=== PATIENT | female | born 1975 ===

== ENCOUNTER 2023-12-18 19:42 | Emergency (ER) | payer OTHER, SELFPAY ==
--- NOTE | ~2023-12-18 | US_ITS ---
EXAMINATION: US PELVIS CLINICAL INFORMATION: Excessive bleeding. COMPARISON: None available. TECHNIQUE: Ultrasound of the pelvis is performed using both transabdominal and transvaginal transducers along with Doppler. Transvaginal imaging is performed due to inadequate visualization transabdominally. FINDINGS: Uterus: The uterus is anteverted, anteflexed and measures 9.5 x 6.0 x 7.5 cm. The double wall endometrial thickness is 2.2 cm.. The uterus is enlarged, bulky with a heterogeneous anterior fundus question adenomyosis. There is a loculated-appearing uterus. There is a echogenic area within the fundal endometrium suspicious for a polyp measuring 2.5 x 1.1 x 1.2 cm. Adnexa: Both ovaries are visualized. There is normal color flow to the adnexa. There is no ovarian torsion. There is no pelvic ascites or fluid collection. Right ovary is not visualized. Left ovary measures 2.8 x 2.1 x 1.6 CM and volume 4.6 mL. It appears unremarkable. There is no free fluid. US/US pelvic and transvaginal IMPRESSION: Bulky enlarged uterus with heterogenous anterior fundus question adenomyomatosis. Suspect fundal endometrial polyp. Left ovary is unremarkable. Right ovary is not visualized. No free fluid in cul-de-sac.
[2023-12-18 19:58] VITALS: BP 150/56; PULSE 89; RESP 20; TEMP 36.4; O2SAT 97; BMI 32.3
[2023-12-18 20:32] LABS: MANUAL DIFF FLAG NO
[2023-12-18 20:33] LABS: Basophils Absolute Auto 0.1 X10*3/uL (0.0-0.2); Basophils Percent Auto 0.6 % (0-2); Eosinophils Absolute Auto 0.3 X10*3/uL (0.0-0.4); Eosinophils Percent Auto 2.5 % (0-4); Hematocrit 28.5 % (37.0-47.0); Hemoglobin 9.3 g/dl (12.0-16.0); Imm Gran Abs Auto 0.07 X10*3/uL (0.00-0.03); Imm Gran Pct Auto 0.6 % (0.0-0.4); Lymphocytes Absolute Auto 3.1 X10*3/uL (1.2-4.9); Lymphocytes Percent Auto 27.6 % (20-40); Mean Corpuscular HGB Conc 32.6 g/dl (31.0-35.0); Mean Corpuscular Hemoglobin 29.7 pg (27.0-33.0); Mean Corpuscular Volume 91.1 fL (80.0-98.0); Mean Platelet Volume 9.7 fL (9.4-12.3); Monocytes Absolute Auto 0.7 X10*3/uL (0.1-1.2); Monocytes Percent Auto 6.7 % (2-11); Neutrophils Absolute Auto 6.8 x10*3/uL (2.0-8.3); Platelet Count 360 X10*3/uL (160-400); Red Blood Count 3.13 X10*6/uL (4.20-5.50); Red Cell Distribution Width 14.6 % (11.0-16.0); White Blood Count 11.1 X10*3/uL (4.8-10.8)
[2023-12-18 20:45] LABS: Anion Gap 12 (12-20); Blood Urea Nitrogen 14 mg/dL (9-16); Calcium 8.9 mg/dL (8.4-10.2); Carbon Dioxide 25 mmol/L (22-29); Chloride 107 mmol/L (96-108); Creatinine Clr Calc Pharmacy 89.6; Estimated Glomerular Filt Rate > 60; Glucose Fasting 105 mg/dL (60-99); Sodium 140 mmol/L (135-145)
--- NOTE | 2023-12-18 22:52 | ED_ITS ---
HPI - Female Genitourinary General Chief complaint: Vaginal Bleeding Stated complaint: bleeding since 11/26, getting worse Time Seen by Provider: 12/18/23 22:14 Source: patient Mode of arrival: ambulatory History of Present Illness HPI Narrative: 48-year-old female presents with menstrual bleeding since November 26 that she says has worsened with passing several clots to include the use of 4 tampons an hour. Patient states that she has had this kind of bleeding previously but it was proximally 20 years ago. Patient denies any dizziness or heart palpitations but states that she does feel somewhat weakened. Patient has recently moved here from [place]. Related Data Previous Rx's Medication Instructions Recorded medroxyprogesterone 10 mg tablet 10 mg PO DAILY #30 tabs 12/19/23 (Provera) Allergies Allergy/AdvReac Type Severity Reaction Status Date / Time ibuprofen Allergy Facial Verified 12/18/23 20:02 Swelling Review of Systems 2 Review of Systems: Pertinent positives and negatives as stated in HPI [facility] Past Medical History Source: nursing notes reviewed Social History Social History Advance Directives: No Advance Directives Information Provided: Yes Physical Exam 2 Vital Signs: Vital Signs: Last Vital Signs Temp 97.8 F 12/19/23 00:12 Pulse 82 12/19/23 00:12 Resp 17 12/19/23 00:12 BP 113/63 12/19/23 00:12 Pulse Ox 97 12/19/23 00:12 O2 Del Method Room Air 12/19/23 00:12 BMI result Body Mass Index 32.3 VITAL SIGNS: Reviewed. GENERAL: Well developed, well nourished, in no acute distress. HEAD: Normocephalic/atraumatic EYES: PERRLA, EOMI EARS: Ext canals without abnormality NOSE: Nares patent bilateral OROPHARYNX: no oral lesions noted, posterior pharynx clear NECK: Supple, no adenopathy LUNGS: Normal breath sounds. No adventitious sounds or accessory muscle use. SpO2<97> CARDIOVASCULAR: Regular rate and rhythm without noted murmurs ABDOMEN: Soft, non-tender, non-distended with bowel sounds. MUSCULOSKELETAL: No tenderness, deformities, or effusions noted on gross inspection. EXTREMITIES: No cyanosis, clubbing or edema. SKIN: Inspection of the skin reveals no rashes NEUROLOGIC: Alert and oriented x 4. Strength and sensation to light touch were grossly intact x 4. Medical Decision Making Medical Decision Making [facility] Narrative: 48-year-old female with history and clinical presentation, DDX: Dysfunctional uterine bleeding, possible uterine fibroids, lower clinical suspicion for miscarriage. I reviewed all investigations and hematologic indices demonstrate a normocytic anemia with stress leukocyte elevation and no thrombocytopenia. Chemistry indices do not demonstrated ALEXANDRA and there are no electrolyte abnormalities. Beta hCG is undetectable. Ultrasound demonstrates evidence to suggest adenomyomatosis, I discussed case with our free lance model who at this time recommends Provera 10 mg and patient will be discharged with a prescription and follow-up with gynecology for endo biopsy. I have discussed all results, findings as well as the plan with the patient at bedside. Differential Diagnosis Differential Diagnoses: The differential diagnosis associated with the presentation includes Please see the discussion above Admission/Observation Consideration of admission/observation: Escalation of care including admission/observation considered Please see the discussion above Consult Healthcare Provider Management of the patient was discussed with: Organizational Psychologist Please see the discussion above Lab Data [facility] Lab Attestation statement: I reviewed the patient's lab results. Please see the discussion above 12/18/23 20:28 12/18/23 20:28 Labs: Lab Results 12/18/23 Range/Units 20:28 WBC 11.1 H (4.8-10.8) X10*3/uL RBC 3.13 L (4.20-5.50) X10*6/uL Hgb 9.3 L (12.0-16.0) g/dl Hct 28.5 L (37.0-47.0) % MCV 91.1 (80.0-98.0) fL MCH 29.7 (27.0-33.0) pg MCHC 32.6 (31.0-35.0) g/dl RDW 14.6 (11.0-16.0) % Plt Count 360 (160-400) X10*3/uL MPV 9.7 (9.4-12.3) fL Immature Gran % (Auto) 0.6 H (0.0-0.4) % Neut % (Auto) 62.0 (45-73) % Lymph % (Auto) 27.6 (20-40) % [place] % (Auto) 6.7 (2-11) % Eos % (Auto) 2.5 (0-4) % Baso % (Auto) 0.6 (0-2) % Lymph # (Auto) 3.1 (1.2-4.9) X10*3/uL [place] # (Auto) 0.7 (0.1-1.2) X10*3/uL Eos # (Auto) 0.3 (0.0-0.4) X10*3/uL Baso # (Auto) 0.1 (0.0-0.2) X10*3/uL Abs Immat Gran (auto) 0.07 H (0.00-0.03) X10*3/uL Absolute Neuts (auto) 6.8 (2.0-8.3) x10*3/uL Absolute Nucleated RBC 0.000 (0.0-0.012) X10*3/uL Nucleated RBC % (auto) 0.0 (0.0-0.2) /100WBC Sodium 140 (135-145) mmol/L Potassium 4.0 (3.3-5.1) mmol/L Chloride 107 (96-108) mmol/L Carbon Dioxide 25 (22-29) mmol/L Anion Gap 12 (12-20) BUN 14 (9-16) mg/dL Creatinine 0.89 (0.5-1.4) mg/dL Estim Creat Clear Calc 89.6 Estimated GFR > 60 Fasting Glucose 105 H (60-99) mg/dL Calcium 8.9 (8.4-10.2) mg/dL Beta HCG, Quant < 2 mIU/mL Radiology Impression Discussion of test interpretation with radiology: I have reviewed the radiologist's reading. Radiologist Impression: Please see the discussion above Critical Care Time Critical Care Time Critical Care Time: Yes Total Critical Care Time: 45 Attestation: I personally attest to this time spent taking care of the patient. Discharge Plan Discharge Clinical Impression: Dysfunctional uterine bleeding, Adenomyosis of uterus Patient Disposition: Home, Self-Care Instructions: Dysfunctional Uterine Bleeding (ED) Additional Instructions: You need to come back to the emergency room with persistent or recurrent bleeding. Prescriptions: New medroxyprogesterone [Provera] 10 mg tablet 10 mg PO DAILY Qty: 30 0RF Referrals: Tino Elliott MD [Physician] -
[2023-12-18 22:55] LABS: HCG Quantitative < 2 mIU/mL
[2023-12-19 00:12] VITALS: BP 113/63; PULSE 82; RESP 17; TEMP 36.6; O2SAT 97
--- NOTE | 2023-12-19 00:37 | PM.GYNCN ---
MOTOR VEHICLE FIELD REPRESENTATIVE - CN: HPI Data of Consult Consult date: 12/19/23 Primary Care Provider: None Physician Consult Narrative Narrative: I was consulted on Delia Mcneil who is a 48 year old female presenting to the emergency with vaginal bleeding since November 26 that associated with passage of blood clots. The Patient denies any dizziness or heart palpitations but states that she does feel somewhat weakened. HCG is less than 2 cc:: CC: OB [facility] Social History Social History Advance Directives: No Advance Directives Information Provided: Yes Meds Allergies Allergy/AdvReac Type Severity Reaction Status Date / Time ibuprofen Allergy Facial Verified 12/18/23 20:02 Swelling MOTOR VEHICLE FIELD REPRESENTATIVE Physical Exam Vitals Vital signs: Temp Pulse Resp BP Pulse Ox O2 Del Method 97.8 F 82 17 113/63 97 Room Air 12/19/23 00:12 12/19/23 00:12 12/19/23 00:12 12/19/23 00:12 12/19/23 00:12 12/19/23 00:12 BMI result Body Mass Index 32.3 Additional Comments: Reported as the following: No evidence of active vaginal bleeding, no cervical or motion or uterine tenderness MOTOR VEHICLE FIELD REPRESENTATIVE - Results Labs 12/18/23 20:28 12/18/23 20:28 Labs: Short CBC 12/18/23 Range/Units 20:28 WBC 11.1 H (4.8-10.8) X10*3/uL Hgb 9.3 L (12.0-16.0) g/dl Hct 28.5 L (37.0-47.0) % Plt Count 360 (160-400) X10*3/uL BMP 12/18/23 20:28 Sodium 140 Potassium 4.0 Chloride 107 Carbon Dioxide 25 BUN 14 Creatinine 0.89 Calcium 8.9 Imaging US - abdomen: Radiologist's impression: ITS Impressions Pelvic/Transvag US 12/18/23 23:04 IMPRESSION: Bulky enlarged uterus with heterogenous anterior fundus question adenomyomatosis. Suspect fundal endometrial polyp. Left ovary is unremarkable. Right ovary is not visualized. No free fluid in cul-de-sac. Assessment and Plan (1) Abnormal uterine bleeding (AUB): Status: Acute Plan Recommended to Dr Espinoza the following: Provera 10 mg p.o. q.d., iron sulfate 325 mg p.o. t.i.d. till the patient is seen in an outpatient OBGYN office Close outpatient follow-up for further management, Endometrial sampling with EMB / possible hysteroscopy/D&C possible polypectomy to rule out endometrial pathology. Instructions to be given to patient to come back to the emergency room in case of persistent or recurrent vaginal bleeding. I spent a total of 20 minutes reviewing the chart, communicating to the emergency room provider and documenting in the medical record
[2023-12-19] MEDS: medroxyPROGESTERone Acetate 5 MG TABLET 10 MG PO (00:58)
== END 2023-12-19 01:01 | disposition home or self-care (01) ==
PROVIDERS: Emergency Provider Student in an Organized Health Care Education/Training Program
DX: N93.8 Other specified abnormal uterine and vaginal bleeding (principal); N80.03 Adenomyosis of the uterus; D64.9 Anemia, unspecified; R53.1 Weakness; Z79.899 Other long term (current) drug therapy
CPT/HCPCS: 36415; 76830; 76856; 80048; 84702; 85025; 99283; 99284

== ENCOUNTER 2024-01-14 15:58 | Emergency (ER) | payer OTHER, SELFPAY ==
[2024-01-14 16:03] VITALS: BP 95/66; PULSE 84; RESP 18; TEMP 36.2; O2SAT 98; BMI 32.3
--- NOTE | 2024-01-14 16:04 | ED.GENADULT ---
HPI - General Adult General Chief complaint: Vaginal Bleeding Stated complaint: excessive vaginal bleeding Time Seen by Provider: 01/14/24 16:25 Source: patient Mode of arrival: ambulatory Limitations: no limitations History of Present Illness HPI narrative: 48-year-old female with a past medical history of dysfunctional vaginal bleeding presents to the emergency department, with her daughter, for concerns of worsening bleeding. She reports she was seen here on 12/18/2023 for similar symptoms and discharged on iron supplements and Provera after grounds maintenance supervisor consult. She reports she has been taking the Provera but that she has missed a few doses. She states her vaginal bleeding has increased over the last couple of days and states that she has been bleeding through both tampons and pads. She reports that she has not started iron supplementation she is history of migraines and she feels as if the iron worsens her migraines. She states she has been making diet changes to try and increase her consumption of iron. She denies any dizziness history headedness but feels that she has had increased fatigue. She denies any vaginal trauma abdominal discomfort. Related Data Previous Rx's Medication Instructions Recorded medroxyprogesterone 10 mg tablet 10 mg PO DAILY #30 tabs 12/19/23 (Provera) [id number] 1 cap PO Q8H PRN migraine #14 caps 01/14/24 50 mg-300 mg-40 mg capsule (Fioricet) ferrous sulfate 325 mg (65 mg 325 mg PO TID 30 days #90 tabs 01/14/24 iron) tablet medroxyprogesterone 10 mg tablet 10 mg PO DAILY #90 tabs 01/14/24 (Provera) Allergies Allergy/AdvReac Type Severity Reaction Status Date / Time ibuprofen Allergy Facial Verified 12/18/23 20:02 Swelling Review of Systems Review of Systems: Yes all other systems are reviewed and are negative PMFSH Social History Social History Smoked in Last 30 Days: No Use of substances other than those prescribed or required for medical reasons: No Advance Directives: No Advance Directives Information Provided: No Patient : No Physical Exam ED Vital Signs: Vital Signs - 24 hr 01/14/24 16:03 01/14/24 16:56 Temperature 97.1 F 97.9 F Pulse Rate 84 75 Respiratory Rate 18 18 Blood Pressure 95/66 134/75 Pulse Oximetry 98 100 Oxygen Delivery Method Room Air Room Air BMI result Body Mass Index 32.3 Nursing notes and vital signs reviewed. GENERAL APPEARANCE: A&0 x 4, generally well appearing, no acute distress HENMT: Normal to inspection, atraumatic, face symmetrical. Normal external ears, nose, and oropharynx clear. EYE: PERRLA, EOM intact, structures appear normal NECK: Supple without lymphadenopathy. No stiffness or restricted ROM. CHEST: Normal to inspection HEART: Normal rate and regular rhythm, normal S1/S2, no M/R/G LUNGS: LS CTA, moving air well. Able to speak in complete sentences. No crackles, wheezes, or rhonchi auscultated ABDOMEN: Soft, nontender, nondistended. Normal bowel sounds noted : Vaginal exam showing dark blood in the vaginal canal with no evidence of clots, trauma, or lesions. Badger Distiller Operator present for exam BACK: No CVAT, no obvious deformity EXTREMITIES: Moving all extremities without difficulty. No cyanosis, clubbing, or edema. Normal capillary refill. NEUROLOGICAL: Alert and oriented, moving all 4 extremities with equal strength. CN not formally tested but appearing grossly intact. Observed to ambulate with normal gait. Cognition normal SKIN: Warm and dry without any lesions, rash, or visible sores PSYCH: Cooperative, normal affect, normal thought process Course Course Course Narrative: This is a rapid medical exam: Additional HPI, ROS, PE not included below will be deferred to primary provider. Patient is a 48-year-old female presenting to the emergency department with ongoing vaginal bleeding. Seen here for same on 12/18. States lessened somewhat, then worsened again last week. Plan: labs Medical Decision Making Medical Decision Making [facility] Narrative: Old records reviewed for previous imaging, lab studies, ECGs, and notes. Patient was assessed the emergency department with no acute distress or toxicity noted. Pelvic exam completed, with charperone present, showing no evidence of vaginal trauma or lesions, abnormal tissue in the vagina. Blood work showing stable H/H of 9.4/30.2. Dr. Elliott, grounds maintenance supervisor, consulted with recommendations for ferrous sulfate iron supplementation 3 times a day and continued Provera. MD recommends close follow-up with grounds maintenance supervisor for endometrial biopsy to assess for endometrial pathology as cause of patient's increased bleeding. Patient is safe for discharge at this time with plan for [id number] Tylenol and/or NSAID such as ibuprofen or naproxen for fever/discomfort with dosing as per packaging. HPI, PE, diagnostics, and plan discussed with patient and family with no unanswered questions at this time. Strict return precautions given to return to the emergency department with new, worsening, or concerning emergent symptoms. Recommended to follow-up with there primary care provider in 24-48 hours for further treatment and management. Differential Diagnosis Differential Diagnoses: The differential diagnosis associated with the presentation includes But not limited to vaginal trauma, abnormal intrauterine bleeding, perimenopause, endometrial malignancy, uterine fibroid, sepsis, malignancy Lab Data 01/14/24 16:28 01/14/24 16:28 Labs: Lab Results 01/14/24 01/14/24 Range/Units 16:28 17:05 WBC 11.4 H (4.8-10.8) X10*3/uL RBC 3.40 L (4.20-5.50) X10*6/uL Hgb 9.4 L (12.0-16.0) g/dl Hct 30.2 L (37.0-47.0) % MCV 88.8 (80.0-98.0) fL MCH 27.6 (27.0-33.0) pg MCHC 31.1 (31.0-35.0) g/dl RDW 13.4 (11.0-16.0) % Plt Count 442 H (160-400) X10*3/uL MPV 9.6 (9.4-12.3) fL Immature Gran % (Auto) 0.5 H (0.0-0.4) % Neut % (Auto) 67.5 (45-73) % Lymph % (Auto) 23.9 (20-40) % [place] % (Auto) 5.9 (2-11) % Eos % (Auto) 1.7 (0-4) % Baso % (Auto) 0.5 (0-2) % Lymph # (Auto) 2.7 (1.2-4.9) X10*3/uL [place] # (Auto) 0.7 (0.1-1.2) X10*3/uL Eos # (Auto) 0.2 (0.0-0.4) X10*3/uL Baso # (Auto) 0.1 (0.0-0.2) X10*3/uL Abs Immat Gran (auto) 0.06 H (0.00-0.03) X10*3/uL Absolute Neuts (auto) 7.7 (2.0-8.3) x10*3/uL Absolute Nucleated RBC 0.000 (0.0-0.012) X10*3/uL Nucleated RBC % (auto) 0.0 (0.0-0.2) /100WBC PT 12.6 (11.1-13.3) SEC INR 1.0 (0.9-1.1) Sodium 137 (135-145) mmol/L Potassium 3.4 (3.3-5.1) mmol/L Chloride 107 (96-108) mmol/L Carbon Dioxide 21 L (22-29) mmol/L Anion Gap 12 (12-20) BUN 13 (9-16) mg/dL Creatinine 0.83 (0.5-1.4) mg/dL Estim Creat Clear Calc 96.1 Estimated GFR > 60 Random Glucose 79 (60-115) mg/dL Calcium 8.7 (8.4-10.2) mg/dL Total Bilirubin 0.4 (0.0-1.0) mg/dL AST 15 (5-31) U/L ALT 14 (0-31) U/L Alkaline Phosphatase 85 (39-117) U/L Total Protein 7.3 (6.5-8.0) g/dL Albumin 3.9 (3.5-5.0) g/dL Beta HCG, Quant < 2 mIU/mL Blood Type O Positive Antibody Screen NEGATIVE Discharge Plan Discharge Clinical Impression: Abnormal uterine bleeding (AUB), Migraine Patient Disposition: Home, Self-Care Instructions: Dysfunctional Uterine Bleeding (ED), Migraine Headache (ED) Additional Instructions: Additional Provera prescription was sent to your pharmacy for further management vaginal bleeding. Iron supplements were sent to aid in production of new red blood cells. Fioricet was sent for management of migraines. Dr. Elliott, unemployment insurance director, was consulted. recommends Provera daily, iron supplementation, and close outpatient follow-up for an endometrial biopsy to further determine cause of dysfunctional vaginal bleeding. Your blood work was stable when compared to your previous blood work. A pelvic exam was done showing no evidence of injury or lesions. You are safe for discharge at this time with plan for management of fever or discomfort with [id number] Tylenol and/or NSAID such as ibuprofen or naproxen with dosing as per packaging. Please return to the emergency department with new, worsening, or concerning emergent symptoms. Recommended to follow-up with your primary care provider in 24-48 hours for further treatment and management. Thank you for choosing [facility]. Prescriptions: New ferrous sulfate 325 mg (65 mg iron) tablet 325 mg PO TID 30 Days Qty: 90 0RF medroxyprogesterone [Provera] 10 mg tablet 10 mg PO DAILY Qty: 90 0RF [id number] [Fioricet] 50-300-40 mg capsule 1 cap PO Q8H PRN (Reason: migraine) Qty: 14 0RF No Action medroxyprogesterone [Provera] 10 mg tablet 10 mg PO DAILY Qty: 30 0RF Referrals: Tino Elliott MD [Physician] - Stand Alone Forms: Work/School Release Print Language: Moroccan
[2024-01-14 16:32] LABS: MANUAL DIFF FLAG NO
[2024-01-14 16:36] LABS: Basophils Absolute Auto 0.1 X10*3/uL (0.0-0.2); Basophils Percent Auto 0.5 % (0-2); Eosinophils Absolute Auto 0.2 X10*3/uL (0.0-0.4); Eosinophils Percent Auto 1.7 % (0-4); Hematocrit 30.2 % (37.0-47.0); Hemoglobin 9.4 g/dl (12.0-16.0); Imm Gran Abs Auto 0.06 X10*3/uL (0.00-0.03); Imm Gran Pct Auto 0.5 % (0.0-0.4); Lymphocytes Absolute Auto 2.7 X10*3/uL (1.2-4.9); Lymphocytes Percent Auto 23.9 % (20-40); Mean Corpuscular HGB Conc 31.1 g/dl (31.0-35.0); Mean Corpuscular Hemoglobin 27.6 pg (27.0-33.0); Mean Corpuscular Volume 88.8 fL (80.0-98.0); Mean Platelet Volume 9.6 fL (9.4-12.3); Monocytes Absolute Auto 0.7 X10*3/uL (0.1-1.2); Monocytes Percent Auto 5.9 % (2-11); Neutrophils Absolute Auto 7.7 x10*3/uL (2.0-8.3); Neutrophils Percent Auto 67.5 % (45-73); Platelet Count 442 X10*3/uL (160-400); Red Cell Distribution Width 13.4 % (11.0-16.0); White Blood Count 11.4 X10*3/uL (4.8-10.8)
[2024-01-14 16:47] LABS: Prothrombin Time 12.6 SEC (11.1-13.3)
[2024-01-14 16:49] LABS: Alanine Aminotransferase 14 U/L (0-31); Albumin Level 3.9 g/dL (3.5-5.0); Alkaline Phosphatase 85 U/L (39-117); Anion Gap 12 (12-20); Aspartate Amino Transferase 15 U/L (5-31); Bilirubin Total 0.4 mg/dL (0.0-1.0); Blood Urea Nitrogen 13 mg/dL (9-16); Calcium 8.7 mg/dL (8.4-10.2); Carbon Dioxide 21 mmol/L (22-29); Chloride 107 mmol/L (96-108); Creatinine Clr Calc Pharmacy 96.1; Estimated Glomerular Filt Rate > 60; Glucose Random 79 mg/dL (60-115); Potassium 3.4 mmol/L (3.3-5.1); Sodium 137 mmol/L (135-145); Total Protein 7.3 g/dL (6.5-8.0)
[2024-01-14 16:56] VITALS: BP 134/75; PULSE 75; RESP 18; TEMP 36.6; O2SAT 100
[2024-01-14 16:58] LABS: HCG Quantitative < 2 mIU/mL
--- NOTE | 2024-01-14 17:06 | PC.NURSE ---
Patient alert and oriented, skin warm, dry, and color appropriate for ethnicity, Patient presents to ER for vaginal bleeding, states it started on 11/26/2023, came to [place] ER in beginning of Dec for same symptoms, was given a medication and helped a bit but never fully stopped, patient states the last 2 days she has had to change her pad 3 times an hour during waking hours and has passed egg sized clots, patient states her menstrual cycle is irregular, patient reports /10 pelvic pain that is constant and crampy, lung sounds clear, abdominal bowel sounds active, vs stable
--- NOTE | 2024-01-14 19:57 | PM.GYNCN ---
CREDIT CONTROL MANAGER - CN: HPI Data of Consult Consult date: 01/14/24 Primary Care Provider: Unknown Physician Consult Narrative Narrative: I was consulted on Delia Mcneil who is a 48 year old female with presenting to emergency room with ongoing vaginal bleeding. The patient presented on 12/18/2023 the ER with the same presentation the following workup was done emergency room H&H was 9.6/28.6, hCG less than 2, pelvic ultrasound showed the following: IMPRESSION: Bulky enlarged uterus with heterogenous anterior fundus question adenomyomatosis. Suspect fundal endometrial polyp. Left ovary is unremarkable. Right ovary is not visualized. No free fluid in cul-de-sac. I was consulted, and the my recommendation was to start the patient on Provera 10 mg p.o. q.d. and instructions to be given to patient to follow-up with outpatient department chairperson office as soon as possible for hysteroscopy D&C polypectomy to rule out endometrial pathology including endometrial hyperplasia and/or malignancy. The patient did not take her Provera daily and missed 6 pills started bleeding again and presented to the emergency room with vaginal bleeding cc:: CC: OB [facility] Social History Social History Smoked in Last 30 Days: No Use of substances other than those prescribed or required for medical reasons: No Advance Directives: No Advance Directives Information Provided: No Patient : No Meds Allergies Allergy/AdvReac Type Severity Reaction Status Date / Time ibuprofen Allergy Facial Verified 12/18/23 20:02 Swelling CREDIT CONTROL MANAGER Physical Exam Vitals Vital signs: Temp Pulse Resp BP Pulse Ox O2 Del Method 97.9 F 75 18 134/75 100 Room Air 01/14/24 16:56 01/14/24 16:56 01/14/24 16:56 01/14/24 16:56 01/14/24 16:56 01/14/24 16:56 BMI result Body Mass Index 32.3 Additional Comments: Reported as the following: Vaginal exam showing dark blood in the vaginal canal with no evidence of active bleeding CREDIT CONTROL MANAGER - Results Labs 01/14/24 16:28 01/14/24 16:28 Labs: Short CBC 01/14/24 Range/Units 16:28 WBC 11.4 H (4.8-10.8) X10*3/uL Hgb 9.4 L (12.0-16.0) g/dl Hct 30.2 L (37.0-47.0) % Plt Count 442 H (160-400) X10*3/uL BMP 01/14/24 16:28 Sodium 137 Potassium 3.4 Chloride 107 Carbon Dioxide 21 L BUN 13 Creatinine 0.83 Calcium 8.7 Liver Function 01/14/24 Range/Units 16:28 Total Bilirubin 0.4 (0.0-1.0) mg/dL AST 15 (5-31) U/L ALT 14 (0-31) U/L Alkaline Phosphatase 85 (39-117) U/L Albumin 3.9 (3.5-5.0) g/dL Antibody Screen Antibody Screen NEGATIVE 01/14/24 17:05 Assessment and Plan (1) Abnormal uterine bleeding (AUB): Status: Acute Recommended to Shirin Rascon NP in the emergency room the following: Instructions to be given to patient to stay on Provera 10 mg p.o. q.d. without missing any pills, iron sulfate 325 mg p.o. t.i.d., close follow-up in the department chairperson office for hysteroscopy/ polypectomy/D and C to rule out endometrial pathology , to come back to emergency room with persistent or worsening of her vaginal bleeding. I spent a total of 20 minutes reviewing the chart, communication to the emergency provider and documenting in the medical record
== END 2024-01-15 01:24 | disposition home or self-care (01) ==
PROVIDERS: Registered Nurse Emergency; Emergency Provider Emergency Medicine Emergency Medical Services
DX: N93.9 Abnormal uterine and vaginal bleeding, unspecified (principal); G43.909 Migraine, unspecified, not intractable, without status migrainosus
CPT/HCPCS: 36415; 80053; 84702; 85025; 85610; 86850; 86900; 86901; 99283; 99284

== ENCOUNTER → 2024-01-14 17:21 | Outpatient (BNV) | payer SELFPAY | PROVIDERS: Emergency Provider Emergency Medicine Emergency Medical Services; Visit Provider Obstetrics & Gynecology | DX: N93.9 Abnormal uterine and vaginal bleeding, unspecified (principal) | CPT/HCPCS: 99283 ==